=== PATIENT | female | born 1995 | race Caucasian/White ===

== ENCOUNTER 2018-01-30 12:09 | Day surgery (SDC) | payer OTHER ==
[2018-01-30] MEDS ORDERED: FENTAnyl 50 MCG/ML VIAL (12:52)
[2018-01-30] MEDS ORDERED: ROCURONIUM 50 MG INJ (12:52)
[2018-01-30] MEDS ORDERED: MIDAZOLAM 1 MG/ML 2 ML INJ (12:52)
[2018-01-30] MEDS ORDERED: PROPOFOL 20 ML (12:52)
[2018-01-30] MEDS ORDERED: FENTAnyl 50 MCG/ML VIAL IV ×3 (13:00)
[2018-01-30] MEDS ORDERED: METOCLOPRAMIDE 10 MG INJ IV (13:00)
[2018-01-30] MEDS ORDERED: MEPERIDINE 25 MG INJ IV (13:00)
[2018-01-30] MEDS ORDERED: HYDROmorphONE 1 MG/5 ML IV SYRINGE IV ×2 (13:00)
[2018-01-30] MEDS ORDERED: DIPHENHYDRAMINE 50 MG INJ IV (13:00)
[2018-01-30] MEDS ORDERED: EPHEDrine SULFATE 50 MG/5 ML SYG IV (13:00)
[2018-01-30] MEDS ORDERED: ONDANSETRON 4 MG INJ IV (13:00)
[2018-01-30] MEDS ORDERED: OXYCODONE/ACETAMINOPHEN (5/325) TAB PO ×2 (13:00)
[2018-01-30] MEDS ORDERED: ONDANSETRON 4 MG INJ (13:33)
[2018-01-30] MEDS ORDERED: KETOROLAC 30 MG INJ (13:34)
[2018-01-30] MEDS ORDERED: SUGAMMADEX SODIUM 200 MG/2 ML VIAL IV (13:34)
[2018-01-30] MEDS: OXYMETAZOLINE 0.05% 15 ML NAS SPRAY NASAL (13:34)
[2018-01-30] MEDS: LIDOCAINE 1%/EPI 30 ML INJ (13:34)
[2018-01-30] MEDS ORDERED: DEXAMETHASONE 4 MG/ML 1 ML INJ (13:34)
[2018-01-30] MEDS ORDERED: METOCLOPRAMIDE 10 MG INJ (13:34)
[2018-01-30] MEDS ORDERED: EPHEDrine 25 MG/5 ML SYG (13:47)
[2018-01-30] MEDS: HYDROmorphONE 1 MG/5 ML IV SYRINGE IV (15:34)
== END 2018-01-30 16:25 | disposition home or self-care (01) ==
LOC: SDS 12:09
DX: S02.2XXA Fracture of nasal bones, initial encounter for closed fracture (principal); J34.3 Hypertrophy of nasal turbinates; J34.2 Deviated nasal septum
CPT/HCPCS: 21315